=== PATIENT | female | born 1980 ===

== ENCOUNTER 2021-03-09 15:05 | Emergency (ER) | payer OTHER ==
--- NOTE | 2021-03-09 18:55 | EDM.PDOC ---
ED HPI GENERAL MEDICAL PROBLEM - General Chief Complaint: General Stated Complaint: CHEST AND BACK PAIN, STARTED YESTERDAY Time Seen by Provider: 03/09/21 18:10 Source of Information: Reports: Patient, Family History Limitations: Reports: No Limitations - History of Present Illness INITIAL COMMENTS - FREE TEXT/NARRATIVE: 40-year-old female has had left sided posterior back pain radiating to the anterior chest over the past 24 to 48 hours. It started after jogging 2 days ago. It was a sharp intermittent pain in the left posterior back but today was radiating through to the anterior chest, she was having pain lifting her small child so she became worried and came in to have it checked. She still has pain with a deep breath but is otherwise stable. No fevers or chills, she had Covid 2 months ago but also had a stillborn child 2 months ago. She has some type of "clotting disorder". Onset: Sudden (Pain started fairly suddenly 2 days ago) Duration: Day(s): (2 days) Location: Reports: Chest (Left back left anterior chest), Back Quality: Reports: Burning, Sharp Worsens with: Reports: Breathing, Other (Lifting her small child causes increased pain), Movement Associated Symptoms: Reports: No Other Symptoms - Related Data Allergies Allergy/AdvReac Type Severity Reaction Status Date / Time cefaclor [From [facility]] Allergy Rash Verified 03/09/21 17:45 Home Meds: Home Meds NK [No Known Home Meds] 03/09/21 [History] Past Medical History [employer] History: Reports: Other (See Below) Other [employer] History: stillbirth, multiple miscarriages Hematologic History: Reports: Other (See Below) Other Hematologic History: MTHFR double mutation, clotting disorder - Past Surgical History GI Surgical History: Reports: Cholecystectomy Social & Family History - Tobacco Use Tobacco Use Status *Q: Never Tobacco User - Recreational Drug Use Recreational Drug Use: No ED ROS GENERAL - Review of Systems Review Of Systems: See Below Constitutional: Denies: Fever, Chills, Malaise HEENT: Reports: No Symptoms Respiratory: Reports: Pleuritic Chest Pain. Denies: Shortness of Breath Cardiovascular: Reports: Chest Pain GI/Abdominal: Denies: Abdominal Pain, Nausea, Vomiting : Reports: No Symptoms Musculoskeletal: Reports: Back Pain Skin: Reports: No Symptoms Neurological: Reports: No Symptoms Psychiatric: Reports: No Symptoms ED EXAM, GENERAL - Physical Exam Exam: See Below Exam Limited By: No Limitations General Appearance: Alert, No Apparent Distress, Anxious Eye Exam: Bilateral Eye: Normal Inspection Head: Atraumatic Neck: Supple, Non-Tender Respiratory/Chest: No Respiratory Distress, Lungs Clear, Chest Non-Tender, Other (I cannot reproduce chest pain with palpation, she can reproduce pain with deep breath) Cardiovascular: Normal Peripheral Pulses, Regular Rate, Rhythm. No: Tachycardia GI/Abdominal: Soft, Non-Tender Extremities: Normal Inspection. No: Pedal Edema Neurological: Alert, Oriented, No Motor/Sensory Deficits Psychiatric: Anxious Skin Exam: Warm, Dry Course - Vital Signs Last Recorded V/S: Last Vital Signs Temp 98.1 F 03/09/21 17:49 Pulse 78 03/09/21 18:13 Resp 21 H 03/09/21 18:13 BP 127/79 03/09/21 18:13 Pulse Ox 98 03/09/21 18:13 - Orders/Labs/Meds Labs: Laboratory Tests 03/09/21 03/09/21 03/09/21 Range/Units 18:32 18:32 18:32 WBC 6.9 (4.5-11.0) K/uL RBC 4.88 (3.30-5.50) M/uL Hgb 14.5 (12.0-15.0) g/dL Hct 42.4 (36.0-48.0) % MCV 87 (80-98) fL MCH 30 (27-31) pg MCHC 34 (32-36) % Plt Count 293 (150-400) K/uL Neut % (Auto) 67.0 H (36-66) % Lymph % (Auto) 26.2 (24-44) % Moore % (Auto) 4.9 (2-6) % Eos % (Auto) 1.6 L (2-4) % Baso % (Auto) 0.3 (0-1) % D-Dimer, Quantitative 211.58 (0.0-500.0) ng/mL Sodium 139 L (140-148) mmol/L Potassium 3.7 (3.6-5.2) mmol/L Chloride 102 (100-108) mmol/L Carbon Dioxide 29 (21-32) mmol/L Anion Gap 11.7 (5.0-14.0) mmol/L BUN 14 (7-18) mg/dL Creatinine 1.0 (0.6-1.0) mg/dL Est Cr Clr Drug Dosing 61.86 mL/min Estimated GFR (MDRD) > 60 (>60) Glucose 90 (74-106) mg/dL Calcium 9.2 (8.5-10.1) mg/dL Troponin I < 0.017 (0.000-0.056) ng/mL - Re-Assessments/Exams Free Text/Narrative Re-Assessment/Exam: 03/09/21 19:17 Patient was kept on cardiac monitoring and pulse oximetry while labs were drawn. She remained stable, O2 sats 99%. CBC, BMP, D-dimer and troponin were ordered . Troponin was 0 and D-dimer was within normal limits. CBC was normal. Patient will be diagnosed with nonspecific chest pain, pleurisy or deep chest wall discomfort. Departure - Departure Time of Disposition: 19:34 Disposition: Home, Self-Care 01 Clinical Impression: Chest pain, atypical - Discharge Information Instructions: Nonspecific Chest Pain, Adult, [id number] Referrals: Mark Alamo MD [Primary Care Provider] - Forms: ED Department Discharge Care Plan Goals: Ibuprofen for the next couple of days may be helpful, increase activity as tolerated. Return if worsening or concerns such as fever, increasing shortness of breath or worsening pain. Otherwise consider rechecking in 3 to 5 days if not improving satisfactorily. Sepsis Event Note (ED) - Evaluation Sepsis Screening Result: No Definite Risk - Focused Exam Vital Signs: Vital Signs Temp Pulse Resp BP Pulse Ox 03/09/21 18:13 78 21 H 127/79 98 03/09/21 17:49 98.1 F 80 12 144/82 H 100
== END 2021-03-09 19:35 | disposition home or self-care (01) ==
LOC: JP.ED 15:05
DX: R07.89 Other chest pain (principal); Z88.1 Allergy status to other antibiotic agents
CPT/HCPCS: 36415; 80048; 84484; 85025; 85379; 99284